=== PATIENT | female | born 1980 | race Caucasian/White ===

== ENCOUNTER 2016-10-18 22:15 | Emergency (ER) | payer SELFPAY ==
[2016-10-18 23:46] LABS: Anion Gap 18 mmol/L; Blood Urea Nitrogen 10 mg/dL (7-17); Calcium 9.1 mg/dL (8.4-10.2); Carbon Dioxide 21 mmol/L (22-30); Chloride 101.6 mmol/L (98-107); Glucose 116 mg/dL (65-100); Potassium 3.4 mmol/L (3.6-5.0); Sodium 137 mmol/L (137-145)
[2016-10-18 23:53] LABS: Basophils % (Auto) 0.4 % (0.0-1.8); Eosinophils % (Auto) 1.6 % (0.0-4.3); Hematocrit 41.9 % (30.3-42.9); Hemoglobin 14.1 gm/dl (10.1-14.3); Mean Corpuscular HGB Conc 34 % (30-34); Mean Corpuscular Hemoglobin 30 pg (28-32); Mean Corpuscular Volume 90 fl (79-97); Platelet Count 338 K/mm3 (140-440); Red Blood Count 4.67 M/mm3 (3.65-5.03); Red Cell Distribution Width 13.3 % (13.2-15.2)
[2016-10-19] LABS: INR 1.08 (0.87-1.13)
[2016-10-19 00:01] LABS: Partial Thromboplastin Time 29.3 Sec. (24.2-36.6)
--- NOTE | 2016-10-19 00:57 | Emergency Department Report ---
ED Chest Pain HPI - General Chief Complaint: Chest Pain Stated Complaint: CHEST PAIN Time Seen by Provider: 10/19/16 00:40 Source: patient, family Mode of arrival: Ambulatory Limitations: Language Barrier - History of Present Illness Initial Comments: Patient is a 36-year-old female with no past medical history presenting to the ER with chest pain. Patient reports for the last 4 days she's had intermittent chest pressure waxing and waning in intensity throughout the day. Associated left facial numbness and left arm and hand pain with the chest pain. Currently patient is asymptomatic. Patient was given 4 baby aspirin by EMS or to arrival. He lives no fevers, chills, nausea, vomiting, shortness of breath, abdominal pain, travel, sick contacts. Patient denies any family history of cardiac disease at early age. Patient is a nonsmoker. Patient has never had chest pain prior to today. MD Complaint: chest pain Severity scale (0 -10): 9 - Related Data Previous Rx's Medication Instructions Recorded Last Taken Type Naproxen [Naprosyn] 500 mg PO BID PRN #14 tablet 10/19/16 Unknown Rx Allergies Allergy/AdvReac Type Severity Reaction Status Date / Time No Known Allergies Allergy Verified 10/18/16 22:26 EVERT score - Evert Score Age > 65: (0) No Aspirin use within the Past 7 Days: (0) No 3 or more CAD Risk Factors: (0) No 2 or more Angina events in past 24 hrs: (0) No Known CAD with more than 50% Stenosis: (0) No Elevated Cardiac Markers: (0) No ST Deviation Greater than 0.5mm: (0) No EVERT Score: 0 ED Review of Systems ROS: Stated complaint: CHEST PAIN Other details as noted in HPI Comment: All other systems reviewed and negative ED Past Medical Hx - Past Medical History Previous Medical History?: No - Surgical History Past Surgical History?: No - Social History Smoking Status: Never Smoker Substance Use Type: None - Medications Home Medications: Home Medications Medication Instructions Recorded Confirmed Last Taken Type Naproxen [Naprosyn] 500 mg PO BID PRN #14 tablet 10/19/16 Unknown Rx ED Physical Exam - General Limitations: Language Barrier General appearance: alert, in no apparent distress - Head Head exam: Present: atraumatic, normocephalic - Eye Eye exam: Present: normal appearance - ENT ENT exam: Present: mucous membranes moist - Neck Neck exam: Present: normal inspection - Respiratory Respiratory exam: Present: normal lung sounds bilaterally. Absent: respiratory distress - Cardiovascular Cardiovascular Exam: Present: regular rate, normal rhythm. Absent: systolic murmur, diastolic murmur, rubs, gallop - GI/Abdominal GI/Abdominal exam: Present: soft, normal bowel sounds - Extremities Exam Extremities exam: Present: normal inspection - Back Exam Back exam: Present: normal inspection - Neurological Exam Neurological exam: Present: alert, oriented X3 - Psychiatric Psychiatric exam: Present: normal affect, normal mood - Skin Skin exam: Present: warm, dry, intact, normal color. Absent: rash ED Course Vital Signs 10/18/16 10/19/16 10/19/16 22:26 00:26 00:30 Temperature 98.5 F Pulse Rate 107 H 80 Respiratory 24 23 Rate Blood Pressure 122/92 130/73 Blood Pressure [Left] O2 Sat by Pulse 98 98 97 Oximetry 10/19/16 10/19/16 10/19/16 00:33 00:35 00:41 Temperature Pulse Rate 85 85 89 Respiratory 20 22 Rate Blood Pressure 130/73 Blood Pressure 133/85 [Left] O2 Sat by Pulse 98 98 98 Oximetry 10/19/16 10/19/16 10/19/16 00:51 01:00 01:11 Temperature Pulse Rate 69 81 80 Respiratory 17 26 H 20 Rate Blood Pressure 130/73 131/79 131/79 Blood Pressure [Left] O2 Sat by Pulse 97 98 97 Oximetry 10/19/16 10/19/16 10/19/16 01:21 01:30 01:41 Temperature Pulse Rate 70 75 70 Respiratory 17 18 17 Rate Blood Pressure 131/79 113/76 113/76 Blood Pressure [Left] O2 Sat by Pulse 98 97 97 Oximetry 10/19/16 10/19/16 10/19/16 01:51 02:27 02:30 Temperature Pulse Rate 93 H 86 81 Respiratory 18 11 L Rate Blood Pressure 113/76 113/76 116/72 Blood Pressure [Left] O2 Sat by Pulse 98 98 95 Oximetry ED Medical Decision Making - Lab Data Result diagrams: 10/18/16 23:09 10/18/16 23:09 - EKG Data -: EKG Interpreted by Ar EKG shows normal: sinus rhythm (22:18), axis, intervals (QTC 433 ms), ST-T waves (no ST changes, no STEMI) Rate: tachycardia (10 4 bpm) - EKG Data When compared to previous EKG there are: previous EKG unavailable Critical care attestation.: If time is entered above; I have spent that time in minutes in the direct care of this critically ill patient, excluding procedure time. ED Disposition Clinical Impression: Chest pain Clinical Impression: (Ruled Out): Chest pain as manifestation of blood transfusion reaction Disposition: DISCHARGED TO HOME OR SELFCARE Is pt being admited?: No Condition: Stable Instructions: Chest Pain (ED) Prescriptions: Naproxen [Naprosyn] 500 mg PO BID PRN #14 tablet PRN Reason: Pain Referrals: PRIMARY CARE, [Primary Care Provider] - 3-5 Days
[2016-10-19 03:44] VITALS: BP 126/77
--- NOTE | 2016-10-19 09:10 | XRay Report ---
Single view chest: History: Chest pain. Findings: Normal cardiomediastinal silhouette. Trachea is midline. No consolidation, pneumothorax or pleural effusion. Impression: No acute cardiopulmonary findings.
== END 2016-10-19 03:44 | disposition home or self-care (01) ==
LOC: ED 22:15
DX: R07.89 Other chest pain (principal)
CPT/HCPCS: 36415; 71010; 80048; 81025; 84484; 85025; 85379; 85610; 85730; 93005; 93010